=== PATIENT | female | born 1960 | race Caucasian/White ===

== ENCOUNTER → 2016-06-16 | Outpatient (CLI) | payer OTHER ==
--- NOTE | 2016-06-16 16:35 | CT ---
EXAMINATION TYPE: CT iac wo con DATE OF EXAM: 06/16/2016 4:27 PM COMPARISON: 11/11/2013 HISTORY: Cholesteatoma of tympanum, right ear. CT DLP: 142.70mGycm Automated exposure control for dose reduction was used. FINDINGS: The external auditory canals are patent bilaterally. Again noted are changes of the partial right-sided mastoidectomy with internal lobular soft tissue noted likely postoperative in nature. Co mplete opacification of the remnant mastoid air cells and right petrous apex. Again noted is soft tis akash surrounding the right ossicular chain extending into the epitympanum. The scutum has been resecte d on the right. Underlying cholesteatoma is not excluded. The left-sided mastoid air cells are well-aerated. Left-sided tympanic membrane and ossicular chains are unremarkable. No additional soft tissue identified. Left-sided scutum is intact. Again noted is e vidence of occipital bone thinning on the left. IMPRESSION: 1. Stable left postoperative change of partial right-sided mastoidectomy with persistent soft tissue surrounding the right ossicular chain underlying cholesteatoma is not excluded.
== END | disposition home or self-care (01) ==
LOC: RADCTMAIN 16:02
PROVIDERS: ATTEND Otolaryngology Otology & Neurotology
DX: H71.11 Cholesteatoma of tympanum, right ear (principal); Z98.890 Other specified postprocedural states
CPT/HCPCS: 70480

== ENCOUNTER → 2016-06-26 | Outpatient (CLI) | payer OTHER ==
--- NOTE | 2016-06-27 10:58 | BD ---
EXAMINATION TYPE: MG DEXA axial skeleton. DATE OF EXAM: 06/26/2016 3:06 PM COMPARISON: NONE CLINICAL HISTORY: M89.9 Disorder of Bone Height: 65 Weight: 133.5 FRAX RISK QUESTIONS: Alcohol (3 or more units per day): no Family History (Parent hip fracture): no Glucocorticoids (More than 3mos): no (Ex: prednisone, prednisolone, methylprednisolone, dexamethasone, and hydrocortisone). History of Fracture in Adulthood: no Secondary Osteoporosis: 1. Type 1 Diabetes: no 2. Hyperthyroidism: no 3. Menopause before 45: no 4. Malnutrition: no 5. Chronic liver disease: no Rheumatoid Arthritis: yes Current Tobacco Use: no RISK FACTORS HISTORY OF: Hip Fracture (Right/Left): no spine Fracture: no History of Wrist Fracture: no Surgery to Spine/Hip(right/left)/Wrist (right/left): no Family History of Osteoporosis: yes mother Active: yes Diet low in dairy products/other sources of calcium: yes Postmenopausal woman: age48 Lost more than 2 inches in height since high school: no Frequent falls: no Adrenal Insufficiency: no MEDICATIONS: Thyroid Medications: tirosent Additional History: EXAM MEASUREMENTS: Bone mineral densitometry was performed using the [employer] System. Bone mineral density as measured about the Lumbar spine is: ----- L1-L4(G/cm2): 0.886 T Score Values are as follows: ----- L2: -2.5 ----- L3: -2.3 ----- L4: -3.0 ----- L1-L4: -2.4 Bone mineral density has: decreased -17.2 % since study of: 06.13.2010 Bone mineral density about the R hip (g/cm2): 0.847 Bone mineral density about the L hip (g/cm2): 0.856 T Score values are as follows: -----R Neck: -1.4 -----L Neck: -1.3 -----R Intertrochanter: -1.5 -----L Intertrochanter: -2.1 Bone mineral density has: % since study of: 06.13.2010 IMPRESSION: Osteopenia and as such there is increased fracture risk. NOTE: T-SCORE=SD OF THE YOUNG ADULT MEAN.
--- NOTE | 2016-06-30 09:20 | MM ---
Reason for exam: screening (asymptomatic). Last mammogram was performed 6 years ago. History: Patient is postmenopausal. Benign cyst aspiration of the left breast. Physical Findings: A clinical breast exam by your physician is recommended on an annual basis and results should be correlated with mammographic findings. MG 3D Screening Mammo W/Cad Bilateral CC and MLO view(s) were taken. Prior study comparison: June 13, 2010, bilateral digital screening mammo w/CAD. August 30, 2008, bilateral digital screening mammogram. The breast tissue is heterogeneously dense. This may lower the sensitivity of mammography. Finding: There is a typically benign high density, round, partially visualized mass in the inner quadrant, posterior position of the left breast seen on CC view, 7 cm from the nipple. New finding since June 13, 2010. ASSESSMENT: Incomplete: need additional imaging evaluation, BI-RAD 0 RECOMMENDATION: Ultrasound of the left breast. [facility] will attempt to contact patient to return for ultrasound.
== END | disposition home or self-care (01) ==
LOC: RADMAMWWP 14:28
PROVIDERS: ATTEND Obstetrics & Gynecology
DX: Z12.31 Encounter for screening mammogram for malignant neoplasm of breast (principal); M85.80 Other specified disorders of bone density and structure, unspecified site
CPT/HCPCS: 77080; 77063; G0202

== ENCOUNTER → 2016-07-03 | Outpatient (CLI) | payer OTHER ==
--- NOTE | 2016-07-03 12:08 | USB ---
Reason for exam: additional evaluation requested from abnormal screening. History: Patient is postmenopausal. Benign cyst aspiration of the left breast. Physical Findings: Nurse did not find any significant physical abnormalities on exam. US Breast Workup Limited LT Left breast ultrasound demonstrates a 1.1 x 0.65 x 1.2cm solid lesion, sebaceous cyst at 9:30. These results were verbally communicated with the patient and result sheet given to the patient on 07/03/16. ASSESSMENT: Probably benign, BI-RAD 3 RECOMMENDATION: Return to routine screening mammogram schedule for both breasts. Manage patient on a clinical basis.
== END | disposition home or self-care (01) ==
LOC: RADUSWWP 10:16
PROVIDERS: ATTEND Obstetrics & Gynecology
DX: R92.8 Other abnormal and inconclusive findings on diagnostic imaging of breast (principal)

== ENCOUNTER 2017-06-14 09:22 | Emergency (ER) | payer OTHER ==
[2017-06-14 09:29] VITALS: PULSE 77; RESP 16
--- NOTE | 2017-06-14 10:41 | ED ---
General Adult HPI - General Chief complaint: ENT Stated complaint: Jaw pain Time Seen by Provider: 06/14/17 09:35 Source: patient, RN notes reviewed Mode of arrival: ambulatory Limitations: no limitations - History of Present Illness Initial comments: Patient's a 56-year-old female who presents emergency room today with a chief complaint of left-sided jaw pain. She states it started last night. She states that she was at a friend's house eating dinner. She states that it is worse with movements if she opens her closer bites down. Patient does admit to a history of right ear surgeries. Total of 4 over the last 4 years. States she had an implant removed in February 2017 had an infection afterwards. States that she saw Dr. Judge. States that over the last week she's been treated for a sinus infection. Patient states that she wasn't sure if this was related. Patient doesn't that she felt a little lightheaded and dizzy at times if she puts her head back. She denies any other complaints or any other symptoms. Denies any cardiac history. Patient denies any recent fever, chills, shortness of breath, chest pain, back pain, abdominal pain, nausea or vomiting, numbness or tingling, dysuria or hematuria, constipation or diarrhea, headaches or visual changes, or any other complaints. - Related Data Previous Rx's Medication Instructions Recorded Meclizine [Antivert] 25 mg PO DAILY 10 Days tab 06/14/17 Allergies Allergy/AdvReac Type Severity Reaction Status Date / Time acetaminophen [From [place]] AdvReac Nausea & Verified 06/14/17 09:29 Vomiting hydrocodone [From [place]] AdvReac Nausea & Verified 06/14/17 09:29 Vomiting Review of Systems ROS Statement: Those systems with pertinent positive or pertinent negative responses have been documented in the HPI. ROS Other: All systems not noted in ROS Statement are negative. Past Medical History Past Medical History: Thyroid Disorder History of Any Multi-Drug Resistant Organisms: Other MDRO Date of last positivie culture/infection: 2018 MDRO Source:: bacertial infection right ear Past Surgical History: Ear Surgery Additional Past Surgical History / Comment(s): right ear 4 surgeries, double foot Past Psychological History: No Psychological Hx Reported Smoking Status: Never smoker Past Alcohol Use History: Occasional Past Drug Use History: None Reported General Exam - General Exam Comments Initial Comments: General: The patient is awake and alert, in no distress, and does not appear acutely ill. Eye: Pupils are equal, round and reactive to light, extra-ocular movements are intact. No nystagmus. There is normal conjunctiva bilaterally. No signs of icterus. Ears, nose, mouth and throat: There are moist mucous membranes and no oral lesions. Does have tenderness when she opens and closes and clenches her teeth. Tender over the TMJ joint. Neck: The neck is supple, there is no tenderness or JVD. Cardiovascular: There is a regular rate and rhythm. No murmur, rub or gallop is appreciated. Respiratory: Lungs are clear to auscultation, respirations are non-labored, breath sounds are equal. No wheezes, stridor, rales, or rhonchi. Musculoskeletal: Normal ROM, no tenderness. Strength 5/5. Sensation intact. Pulses equal bilaterally 2+. Neurological: A&O x 3. CN II-XII intact, There are no obvious motor or sensory deficits. Coordination appears grossly intact. Speech is normal. Skin: Skin is warm and dry and no rashes or lesions are noted. Psychiatric: Cooperative, appropriate mood & affect, normal judgment. Limitations: no limitations Course Vital Signs 06/14/17 09:23 Temperature 97.7 F Pulse Rate 77 Respiratory 16 Rate Blood Pressure 123/67 O2 Sat by Pulse 100 Oximetry EKG Findings - EKG Comments: EKG Findings:: EKG performed at 0959: A 12-lead EKG was performed and interpreted by me as showing the following: Rate is 61, and rhythm is normal sinus. There are normal QRS complexes and normal R-wave progression. ST segments have no elevation or depression, and NV segments appear normal. Medical Decision Making - Medical Decision Making Patient reexamined at this time shows no signs of distress. Her pain is reproduced on palpation over the TMJ joint. It is worse with certain movements. EKG was performed and shows normal sinus rhythm. Case was discussed with the attending physician Dr. Ferris. At this time patient's pain is reproducible. She currently being treated for a sinus infection. Patient will be given meclizine for symptoms advised follow-up the family doctor tomorrow. Advised return here to the emergency room for any symptoms increase or worsen or for any other concerns. Patient states understanding and is in agreement with the plan. Disposition Clinical Impression: TMJ arthralgia Disposition: HOME SELF-CARE Condition: Good Instructions: Temporomandibular Disorder (ED) Additional Instructions: Please follow-up the family doctor tomorrow as discussed. Please use medication as prescribed. Please return to emergency room if any symptoms increase or worsen or for any other concerns. Prescriptions: Meclizine [Antivert] 25 mg PO DAILY 10 Days tab Referrals: Lino Wood DO [Primary Care Provider] - 1-2 days Time of Disposition: 10:40
[2017-06-14 10:47] VITALS: BP 120/68; TEMP 98
== END 2017-06-14 10:46 | disposition home or self-care (01) ==
LOC: EC 09:22
DX: M26.622 Arthralgia of left temporomandibular joint (principal); Z88.5 Allergy status to narcotic agent; Z88.6 Allergy status to analgesic agent
CPT/HCPCS: 93005; 99283

== ENCOUNTER → 2018-05-27 | Outpatient (CLI) | payer MEDICAID ==
--- NOTE | 2018-05-27 12:24 | XR ---
EXAMINATION TYPE: XR chest 2V DATE OF EXAM: 05/27/2018 COMPARISON: 04/08/2017 TECHNIQUE: PA and lateral views submitted. HISTORY: Shortness of breath FINDINGS: The lungs are clear and there is no pneumothorax, pleural effusion, or focal pneumonia. Hyperinflat ion suggests COPD. Biapical pleural thickening. 5 mm nodular density lateral margin right lower lobe is stable. Degenerative change of the spine. IMPRESSION: 1. Correlate for COPD..
== END | disposition home or self-care (01) ==
LOC: RADXRMAIN 11:41
PROVIDERS: ATTEND Family Medicine
DX: J45.21 Mild intermittent asthma with (acute) exacerbation (principal)
CPT/HCPCS: 71046

== ENCOUNTER 2018-07-21 10:23 | Observation (INO) | payer MEDICAID ==
[2018-07-21] MEDS ORDERED: NITROGLYCERIN SL TABS 0.4 MG TAB SUBLINGUAL STA ×3 (10:49)
[2018-07-21] MEDS ORDERED: ASPIRIN 81 MG PO STA (10:49)
--- NOTE | 2018-07-21 10:52 | ED ---
General Adult HPI - General Chief complaint: Chest Pain Stated complaint: Chest Pain Time Seen by Provider: 07/21/18 10:39 Source: patient, RN notes reviewed Limitations: no limitations - History of Present Illness Initial comments: Patient is a pleasant 67-year-old female presenting to the emergency Department with complaints of chest discomfort. Symptoms have been present for several weeks. did have a trip to [place] recently however symptoms started for that. Patient has also been having cough for the past couple of weeks. Patient feels her chest is congested. Patient does feel somewhat short of breath. No nausea or diaphoresis. Symptoms are not necessarily worse with exertion. Discomfort feels a pressure and does radiate towards the back. - Related Data Home Medications Medication Instructions Recorded Confirmed Ibuprofen [Motrin Ib] 600 mg PO Q12H 07/21/18 07/21/18 Levothyroxine Sodium [Synthroid] 50 mcg PO DAILY 07/21/18 07/21/18 Allergies Allergy/AdvReac Type Severity Reaction Status Date / Time acetaminophen [From [place]] AdvReac Nausea & Verified 07/21/18 11:41 Vomiting hydrocodone [From [place]] AdvReac Nausea & Verified 07/21/18 11:41 Vomiting Review of Systems ROS Statement: Those systems with pertinent positive or pertinent negative responses have been documented in the HPI. ROS Other: All systems not noted in ROS Statement are negative. Constitutional: Denies: fever Eyes: Denies: eye pain ENT: Denies: throat pain Respiratory: Reports: cough, dyspnea Cardiovascular: Reports: chest pain Endocrine: Denies: fatigue Gastrointestinal: Denies: abdominal pain, nausea Genitourinary: Denies: dysuria Musculoskeletal: Reports: as per HPI Skin: Denies: rash Neurological: Denies: weakness Past Medical History Past Medical History: Thyroid Disorder History of Any Multi-Drug Resistant Organisms: Other MDRO Date of last positivie culture/infection: 2017 MDRO Source:: bacertial infection right ear Past Surgical History: Ear Surgery Additional Past Surgical History / Comment(s): right ear 4 surgeries, double foot Past Psychological History: No Psychological Hx Reported Smoking Status: Never smoker Past Alcohol Use History: Occasional Past Drug Use History: None Reported General Exam Limitations: no limitations General appearance: alert, in no apparent distress Head exam: Present: normocephalic Eye exam: Present: normal appearance, PERRL ENT exam: Present: normal oropharynx Neck exam: Present: normal inspection Respiratory exam: Present: normal lung sounds bilaterally. Absent: chest wall tenderness Cardiovascular Exam: Present: regular rate, normal rhythm Expanded Peripheral pulses: 2+: Radial (R), Radial (L), Dorsalis Pedis (R), Dorsalis Pedis (L) GI/Abdominal exam: Present: soft. Absent: tenderness Extremities exam: Present: normal inspection. Absent: pedal edema, calf tenderness Back exam: Present: normal inspection. Absent: tenderness Neurological exam: Present: alert Psychiatric exam: Present: normal affect, normal mood Skin exam: Present: normal color Course Vital Signs 07/21/18 07/21/18 07/21/18 10:33 11:33 11:40 Temperature 97.7 F Pulse Rate 87 77 73 Respiratory 16 16 16 Rate Blood Pressure 132/75 120/74 111/70 O2 Sat by Pulse 100 100 99 Oximetry EKG Findings - EKG Comments: EKG Findings:: Normal sinus rhythm at 60. AK 132. QRS 82. QT 404. QTC 404. Normal axis. Normal QRS. No acute ST change. Medical Decision Making - Medical Decision Making Patient reevaluated and updated on results and plan. Patient specifically is updated on nodules and need for follow-up with this in the future. Case was discussed in detail with Dr. Cervantes, covering for Dr. Wood, who will admit. - Lab Data Result diagrams: 07/21/18 11:34 07/21/18 11:34 Lab Results 07/21/18 07/21/18 07/21/18 Range/Units 11:34 11:34 11:34 WBC 4.9 (3.8-10.6) k/uL RBC 4.30 (3.80-5.40) m/uL Hgb 13.1 (11.4-16.0) gm/dL Hct 39.4 (34.0-46.0) % MCV 91.7 (80.0-100.0) fL MCH 30.4 (25.0-35.0) pg MCHC 33.2 (31.0-37.0) g/dL RDW 12.6 (11.5-15.5) % Plt Count 255 (150-450) k/uL Neutrophils % 54 % Lymphocytes % 29 % Monocytes % 6 % Eosinophils % 6 % Basophils % 1 % Neutrophils # 2.7 (1.3-7.7) k/uL Lymphocytes # 1.5 (1.0-4.8) k/uL Monocytes # 0.3 (0-1.0) k/uL Eosinophils # 0.3 (0-0.7) k/uL Basophils # 0.1 (0-0.2) k/uL PT 10.1 (9.0-12.0) sec INR 0.9 (<1.2) APTT 90.0 H (22.0-30.0) sec D-Dimer 0.80 H (<0.60) mg/L FEU Sodium 138 (137-145) mmol/L Potassium 4.1 (3.5-5.1) mmol/L Chloride 106 (98-107) mmol/L Carbon Dioxide 26 (22-30) mmol/L Anion Gap 6 mmol/L BUN 14 (7-17) mg/dL Creatinine 0.56 (0.52-1.04) mg/dL Est GFR (CKD-EPI)AfAm >90 (>60 ml/min/1.73 sqM) Est GFR (CKD-EPI)NonAf >90 (>60 ml/min/1.73 sqM) Glucose 86 (74-99) mg/dL Calcium 9.8 (8.4-10.2) mg/dL Magnesium 2.1 (1.6-2.3) mg/dL Total Bilirubin 0.6 (0.2-1.3) mg/dL AST 24 (14-36) U/L ALT 28 (9-52) U/L Alkaline Phosphatase 67 (38-126) U/L Creatine Kinase 74 (30-135) U/L Troponin I (0.000-0.034) ng/mL NT-Pro-B Natriuret Pep pg/mL Total Protein 7.2 (6.3-8.2) g/dL Albumin 4.1 (3.5-5.0) g/dL 07/21/18 07/21/18 Range/Units 11:34 11:34 WBC (3.8-10.6) k/uL RBC (3.80-5.40) m/uL Hgb (11.4-16.0) gm/dL Hct (34.0-46.0) % MCV (80.0-100.0) fL MCH (25.0-35.0) pg MCHC (31.0-37.0) g/dL RDW (11.5-15.5) % Plt Count (150-450) k/uL Neutrophils % % Lymphocytes % % Monocytes % % Eosinophils % % Basophils % % Neutrophils # (1.3-7.7) k/uL Lymphocytes # (1.0-4.8) k/uL Monocytes # (0-1.0) k/uL Eosinophils # (0-0.7) k/uL Basophils # (0-0.2) k/uL PT (9.0-12.0) sec INR (<1.2) APTT (22.0-30.0) sec D-Dimer (<0.60) mg/L FEU Sodium (137-145) mmol/L Potassium (3.5-5.1) mmol/L Chloride (98-107) mmol/L Carbon Dioxide (22-30) mmol/L Anion Gap mmol/L BUN (7-17) mg/dL Creatinine (0.52-1.04) mg/dL Est GFR (CKD-EPI)AfAm (>60 ml/min/1.73 sqM) Est GFR (CKD-EPI)NonAf (>60 ml/min/1.73 sqM) Glucose (74-99) mg/dL Calcium (8.4-10.2) mg/dL Magnesium (1.6-2.3) mg/dL Total Bilirubin (0.2-1.3) mg/dL AST (14-36) U/L ALT (9-52) U/L Alkaline Phosphatase (38-126) U/L Creatine Kinase (30-135) U/L Troponin I <0.012 (0.000-0.034) ng/mL NT-Pro-B Natriuret Pep 77 pg/mL Total Protein (6.3-8.2) g/dL Albumin (3.5-5.0) g/dL - Radiology Data Radiology results: report reviewed (Computed tomography scan negative for pulmonary embolism. There are some nodules.), image reviewed (Chest x-ray shows no acute process) Disposition Clinical Impression: Chest pain Disposition: ADMITTED IP TO THIS HOSP Is patient prescribed a controlled substance at d/c from ED?: No Referrals: Lino Wood DO [Primary Care Provider] - 1-2 days Decision Time: 13:32
--- NOTE | 2018-07-21 11:32 | XR ---
EXAMINATION TYPE: XR chest 2V DATE OF EXAM: 07/21/2018 COMPARISON: . History of bronchitis. 05/27/2018 HISTORY: Chest heaviness in chest pain TECHNIQUE: Frontal and lateral views of the chest are obtained. FINDINGS: There is no focal air space opacity, pleural effusion, or pneumothorax seen. Pulmonary hyp erinflation and flattening of the diaphragms on the lateral view suggests underlying COPD. Biapical l ucency is also seen suggesting COPD. The cardiac silhouette size is within normal limits. The osseo us structures are intact. IMPRESSION: No acute cardiopulmonary process. Radiographic evidence of COPD.
[2018-07-21 11:59] LABS: Basophils # (A) 0.1 k/uL (0-0.2); Basophils % (A) 1 %; Eosinophils # (A) 0.3 k/uL (0-0.7); Eosinophils % (A) 6 %; HCT 39.4 % (34.0-46.0); HGB 13.1 gm/dL (11.4-16.0); Lymphocytes # (A) 1.5 k/uL (1.0-4.8); Lymphocytes % (A) 29 %; MCH 30.4 pg (25.0-35.0); MCHC 33.2 g/dL (31.0-37.0); MCV 91.7 fL (80.0-100.0); Mean Platelet Volume 7.8; Monocytes # (A) 0.3 k/uL (0-1.0); Monocytes % (A) 6 %; Neutrophils # (A) 2.7 k/uL (1.3-7.7); Neutrophils % (A) 54 %; Platelet Count 255 k/uL (150-450); RDW 12.6 % (11.5-15.5); WBC 4.9 k/uL (3.8-10.6)
[2018-07-21 12:09] LABS: ALT 28 U/L (9-52); AST 24 U/L (14-36); Albumin 4.1 g/dL (3.5-5.0); Alkaline Phosphatase 67 U/L (38-126); Anion Gap 6 mmol/L; Blood Urea Nitrogen 14 mg/dL (7-17); Calcium 9.8 mg/dL (8.4-10.2); Carbon Dioxide 26 mmol/L (22-30); Chloride 106 mmol/L (98-107); Creatine Kinase 74 U/L (30-135); Glucose 86 mg/dL (74-99); Magnesium 2.1 mg/dL (1.6-2.3); Potassium 4.1 mmol/L (3.5-5.1); Sodium 138 mmol/L (137-145); Total Bilirubin 0.6 mg/dL (0.2-1.3); Total Protein 7.2 g/dL (6.3-8.2)
[2018-07-21 12:16] LABS: INR 0.9 (<1.2); Prothrombin Time 10.1 sec (9.0-12.0)
[2018-07-21 12:32] LABS: D-Dimer 0.8 mg/L FEU (<0.60)
--- NOTE | 2018-07-21 13:09 | CT ---
EXAMINATION TYPE: CT angio chest DATE OF EXAM: 07/21/2018 COMPARISON: 07/21/2018 HISTORY: 57 year-old female shortness of breath, Difficulty breathing TECHNIQUE: Contiguous axial scanning of the chest performed with IV Contrast, patient injected with 1 00 mL of Isovue 370. Coronal/sagittal MIP reconstructions performed. CT DLP: 197.9 mGycm Automated exposure control for dose reduction was used. FINDINGS: Heart normal size without pericardial effusion. Aorta normal caliber with conventional arch vessel branching anatomy. Scattered nonenlarged mediastinal lymph nodes are demonstrated. Satisfactory opacification of the pulmonary to systemic without evidence for pulmonary embolus. There is no flattening of the interventricular septum or reflux of contrast into the hepatic veins. Mild diffuse bronchial wall thickening. Mild dependent atelectasis. Scattered mild emphysematous kaur ge. 6 mm subpleural pulmonary nodule peripheral right base, axial image 100. 4 mm posterior left basilar pulmonary nodule axial image 97. 4 mm subpleural pulmonary nodule along the superior aspect of the left major fissure, axial image 40. Mild biapical pleural-parenchymal scarring. No consolidation or pleural effusion. Visualized upper abdomen shows a hilar splenule. Bones: No osseous destructive process. Mild degenerative disc disease midthoracic spine. IMPRESSION: 1. COPD WITH MILD EMPHYSEMA. 2. NO EVIDENCE FOR PULMONARY EMBOLUS. 3. A FEW SCATTERED PULMONARY NODULES MEASURING UP TO 6 MM. A 6 MONTH FOLLOW-UP CT CAN REASSESS.
[2018-07-21] MEDS ORDERED: NITROGLYCERIN SL TABS 0.4 MG TAB SUBLINGUAL PRN (13:33)
[2018-07-21 15:15] VITALS: BMI 21.6
[2018-07-21] MEDS: NITROGLYCERIN OINT 1 INCH/GM PACKET TOPICAL SCH ×2 (18:50→23:43)
--- NOTE | 2018-07-21 19:11 | HP ---
HISTORY AND PHYSICAL DATE OF ADMISSION AND SERVICE: 07/21/2018 PRESENTING COMPLAINT: Chest pain. HISTORY OF PRESENTING COMPLAINT: This is a pleasant 57-year-old patient of Dr. Lino Wood. Chronic stable medical conditions include hypothyroid, rheumatoid arthritis, hiatal hernia. The patient does follow up with Dr. 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 The patient's arthritis in the hands has been bothering her. For 6 weeks she was being treated for bronchitis and has had 2 courses of steroids and antibiotics. Still has a slightly congested chest, occasionally gets some fluttering in the chest. Yesterday she noticed some heaviness in the left upper part of the chest going to the left shoulder. There was no dizziness, no lightheadedness, no obvious shortness of breath, not related to activity. The patient's appetite is fair. There was no fever or chills. Because of the combination of symptoms, she decided to come in to get a cardiac cause ruled out. Patient has good exercise tolerance and otherwise is very active. No prior cardiac history. REVIEW OF SYSTEMS: CONSTITUTIONAL: As above. HEENT: None. RESPIRATORY: As above. CARDIOVASCULAR: As above. GASTROINTESTINAL: None. GENITOURINARY: None. MUSCULOSKELETAL: Pain in the joints, especially in the hands. DERMATOLOGICAL: None. HEMATOLOGICAL: None. LYMPHATICS: None. PSYCHIATRY: None. NEUROLOGICAL: None. PAST MEDICAL HISTORY: 1. Hypothyroid. 2. Rheumatoid arthritis. 3. Hiatal hernia. PAST SURGICAL HISTORY: 1. Ear surgery; right ear 4 surgeries. 2. Bilateral foot bunionectomy. SOCIAL HISTORY: . 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 Does not smoke or drink alcohol. FAMILY HISTORY: Reviewed; noncontributory to presentation. HOME MEDICATIONS: 1. Synthroid 50 mcg a day. 2. Motrin 600 mg q.12. ALLERGIES: NOR[place] causing nausea and vomiting. PHYSICAL EXAMINATION: Temperature 97.7, pulse 71, respirations 16, blood pressure 135/86, pulse ox 100% on room air. GENERAL APPEARANCE: Average build. Sitting up, comfortable. EYES: Pupils equal. Conjunctivae normal. HEENT: External appearance of nose and ears normal. Oral cavity normal. NECK: JVD not raised. Mass not palpable. RESPIRATORY: Effort normal. LUNGS: Fair air entry. CARDIOVASCULAR: First and second sounds normal. No edema. ABDOMEN: Soft, non-tender. Liver and spleen not palpable. LYMPHATIC: No lymph node palpable in neck or axillae. PSYCHIATRY: Alert and oriented x3. Mood and affect normal. NEUROLOGICAL: Pupils equal. Cranial nerves grossly intact. Power and sensation grossly intact. MUSCULOSKELETAL: Swelling of the joints, especially of the hands. INVESTIGATIONS: White count 4.9, hemoglobin 13.1. D-dimer 0.8, potassium 4.1. BUN and creatinine are normal. Troponin x2 was negative. EKG tracing, personally reviewed by me, shows normal sinus rhythm. Chest CTA shows some 4-6 mm nodules. Chest x-ray film, personally reviewed by me, shows some hyperinflation. ASSESSMENT: 1. Left-sided chest pain with other atypical features, likely non-cardiac in nature, but we will get a cardiology opinion to rule out the same. 2. Hypothyroid. Rule out over-replacement. 3. Chronic rheumatoid arthritis. 4. Hiatal hernia. 5. Episodes of fluttering in the chest; could be occasional PVCs. 6. Acute viral syndrome. Sometimes these symptoms can last for a good 4-6 weeks. PLAN: Care was discussed with the patient. Patient is on aspirin and Nitro-Bid. Cardiology is consulted. Serial cardiac enzymes are in place. Will check patient's thyroid function in the morning. MMODL / IJN: [id number] /
[2018-07-22] MEDS: NITROGLYCERIN OINT 1 INCH/GM PACKET TOPICAL SCH ×2 (05:48→11:39)
[2018-07-22] MEDS ORDERED: IBUPROFEN 600 MG TAB PO STA (06:04)
[2018-07-22] MEDS ORDERED: IBUPROFEN 200 MG TAB PO SCH (06:15)
[2018-07-22] MEDS ORDERED: LEVOTHYROXINE 50 MCG TAB PO SCH (06:30)
[2018-07-22 07:45] VITALS: RESP 16
[2018-07-22] MEDS ORDERED: ASPIRIN 325 MG TAB PO SCH (09:00)
[2018-07-22 09:59] LABS: T4, Free (Free Thyroxine) 1.45 ng/dL (0.78-2.19)
--- NOTE | 2018-07-22 10:50 | P.CRDCN ---
History of Present Illness History of present illness: This is a pleasant 57-year-old female past medical history significant for rheumatoid arthritis and former nicotine dependence. She denies history of hypertension, dyslipidemia, diabetes mellitus or coronary artery disease. 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 We've asked to see her in consultation secondary to chest discomfort. She states this all started approximately one month ago after losing her sister. Her first episode occurred while she was in [place] walking around she noticed a numb heavy sensation in the left arm from the shoulder down to the hand. His persisted for approximately 20-30 minutes and subsided on its own. At that time there is no associated chest discomfort or any other associated symptoms. 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 There is no radiation into the arm, into the back, neck or jaw. She denies associated shortness of breath, dizziness, nausea, vomiting, palpitations or d iaphoresis. The pain in her chest seemed to be worse with deep inspiration. She continues to have ongoing mild heaviness in the chest. Intensity has subsided since admission. She states for approximately 6 weeks she has been following closely with her primary care physician and has been told she has bronchitis. She continues to have a mild dry cough. EKG reveals sinus mechanism with no acute ST or T wave abnormalities noted. Chest x-ray is negative for an acute cardiopulmonary process. CTA chest is negative for pulmonary embolism with evidence of emphysema and 3 scattered luminary nodules measuring up to 6 mm. 6 month follow-up CT is recommended. Laboratory data reviewed, WBC 4.9, hemoglobin 13.1, platelets 255, d-dimer 0.8, sodium 138, potassium 4.1, creatinine 0.56, magnesium 2.1, cardiac enzymes negative 3, NT proBNP 77, LDL 96, HDL 67, TSH 5.68 and free T4 1.45. She takes no daily cardiac medications. At the time of my exam: CONSTITUTIONAL: Denies fever. Denies chills. EYES: Denies blurred vision. Denies vision changes. Denies eye pain. EARS, NOSE, MOUTH & THROAT: Denies headache. Denies sore throat. Denies ear pain. CARDIOVASCULAR: Denies chest pain. Denies shortness of breath. Denies orthopnea. Denies PND. Denies palpitations. RESPIRATORY: Denies cough. GASTROINTESTINAL: Denies abdominal pain. Denies diarrhea. Denies constipation. Denies nausea. Denies vomiting. MUSCULOSKELETAL: Denies myalgias. INTEGUMENTARY: Denies pruitis. Denies rash. NEUROLOGIC: Denies numbness. Denies tingling. Denies weakness. PSYCHIATRIC: Denies anxiety. Denies depression. ENDOCRINE: Denies fatigue. Denies weight change. Denies polydipsia. Denies polyurina. GENITOURINARY: Denies burning, hematuria or urgency with micturation. HEMATOLOGIC: Denies history of anemia. Denies bleeding. Blood pressure 126/72 heart rate 66 afebrile maintaining oxygen saturation on room air GENERAL: This is a 57-year-old female in no apparent distress at the time of my examination. HEENT: Head is atraumatic, normocephalic. Pupils are equal, round. Sclerae anicteric. Conjunctivae are clear. Mucous membranes of the mouth are moist. Neck is supple. There is no jugular venous distention. No carotid bruit is heard. LUNGS: Clear to auscultation no wheezes, rales or rhonchi. No chest wall tenderness is noted on palpation or with deep breathing. HEART: Regular rate and rhythm without murmurs, rubs or gallops. S1 and S2 heard. ABDOMEN: Soft, nontender. Bowel sounds are heard. No organomegaly noted. EXTREMITIES: No evidence of peripheral edema and no calf tenderness noted. VASCULAR: Radial and dorsalis pedis pulses palpated, no evidence of clubbing. NEUROLOGIC: Patient is awake, alert and oriented x3. ASSESSMENT Chest pain, atypical for angina with some pleuritic factors. An acute coronary event has been ruled out. History of rheumatoid arthritis Pulmonary nodules noted on CT Former nicotine dependence PLAN An acute coronary event has been ruled out with no EKG evidence of ischemia and negative cardiac enzymes. Obtain 2-D echocardiogram and Doppler study to assess cardiac structure and function. Perform stress echocardiogram to assess for stress-induced ischemia. If stress test is normal she is stable from a cardiac perspective. Symptoms may be related to postnasal drip causing cough and pleuritic chest discomfort. Thank you kindly for this consultation. Nurse Practitioner note has been reviewed, I agree with a documented findings and plan of care. Patient was seen and examined. Past Medical History Past Medical History: Thyroid Disorder Additional Past Medical History / Comment(s): RA, hiatal hernia History of Any Multi-Drug Resistant Organisms: None Reported Date of last positivie culture/infection: 2018 MDRO Source:: bacertial infection right ear Past Surgical History: Ear Surgery Additional Past Surgical History / Comment(s): right ear 4 surgeries, bilat foot bunionectomy Past Anesthesia/Blood Transfusion Reactions: No Reported Reaction Additional Past Anesthesia/Blood Transfusion Reaction / Comment(s): pt statess she sometimes has difficulty waking up. Past Psychological History: No Psychological Hx Reported Smoking Status: Former smoker Past Alcohol Use History: Occasional Past Drug Use History: None Reported Medications and Allergies Home Medications Medication Instructions Recorded Confirmed Type Ibuprofen [Motrin Ib] 600 mg PO Q12H 07/21/18 07/21/18 History Levothyroxine Sodium [Synthroid] 50 mcg PO DAILY 07/21/18 07/21/18 History Allergies Allergy/AdvReac Type Severity Reaction Status Date / Time acetaminophen [From [facility]] AdvReac Nausea & Verified 07/21/18 11:41 Vomiting hydrocodone [From [facility]] AdvReac Nausea & Verified 07/21/18 11:41 Vomiting Physical Exam Vitals: Vital Signs Temp Pulse Pulse Resp BP BP Pulse Ox 07/22/18 07:17 96 07/22/18 07:10 97.8 F 66 16 126/72 98 07/22/18 03:50 98.2 F 63 14 122/74 99 07/22/18 03:25 65 15 07/22/18 00:00 15 07/21/18 23:20 97.7 F 65 15 110/65 96 07/21/18 20:00 16 07/21/18 19:00 98.0 F 81 16 126/77 99 07/21/18 15:58 71 16 07/21/18 14:32 97.7 F 71 16 135/86 100 07/21/18 14:19 75 18 136/91 97 07/21/18 11:40 73 16 111/70 99 07/21/18 11:33 77 16 120/74 100 07/21/18 10:33 97.7 F 87 16 132/75 100 Intake and Output 07/21/18 07/22/18 07/22/18 22:59 06:59 14:59 Intake Total 420 Balance 420 Intake: Oral 420 Other: Voiding Method Toilet Toilet Toilet # Voids 2 2 Results 07/21/18 11:34 07/21/18 11:34 Cardiac Enzymes 07/21/18 07/21/18 07/21/18 Range/Units 11:34 11:34 17:38 AST 24 (14-36) U/L Troponin I <0.012 <0.012 (0.000-0.034) ng/mL 07/21/18 Range/Units 23:45 AST (14-36) U/L Troponin I <0.012 (0.000-0.034) ng/mL Coagulation 07/21/18 Range/Units 11:34 PT 10.1 (9.0-12.0) sec APTT 90.0 H (22.0-30.0) sec Lipids 07/21/18 Range/Units 11:34 Triglycerides 51 (<150) mg/dL Cholesterol 173 (<200) mg/dL HDL Cholesterol 67 H (40-60) mg/dL CBC 07/21/18 Range/Units 11:34 WBC 4.9 (3.8-10.6) k/uL RBC 4.30 (3.80-5.40) m/uL Hgb 13.1 (11.4-16.0) gm/dL Hct 39.4 (34.0-46.0) % Plt Count 255 (150-450) k/uL Comprehensive Metabolic Panel 07/21/18 Range/Units 11:34 Sodium 138 (137-145) mmol/L Potassium 4.1 (3.5-5.1) mmol/L Chloride 106 (98-107) mmol/L Carbon Dioxide 26 (22-30) mmol/L BUN 14 (7-17) mg/dL Creatinine 0.56 (0.52-1.04) mg/dL Glucose 86 (74-99) mg/dL Calcium 9.8 (8.4-10.2) mg/dL AST 24 (14-36) U/L ALT 28 (9-52) U/L Alkaline Phosphatase 67 (38-126) U/L Total Protein 7.2 (6.3-8.2) g/dL Albumin 4.1 (3.5-5.0) g/dL Current Medications Generic Name Dose Route Start Last Admin Trade Name Freq PRN Reason Stop Dose Admin Aspirin 325 mg 07/22/18 09:00 Aspirin PO DAILY [facility] Ibuprofen 600 mg 07/22/18 06:15 Advil PO Q12H [facility] Levothyroxine Sodium 50 mcg 07/22/18 06:30 07/22/18 05:46 Synthroid PO 50 mcg DAILY@0630 [facility] Administration Nitroglycerin 1 inch 07/21/18 18:00 07/22/18 05:48 Nitro-Bid Oint TOPICAL Not Given Q6HR [facility] Nitroglycerin 0.4 mg 07/21/18 13:33 Nitrostat SUBLINGUAL Q5M PRN Chest Pain Sodium Chloride 10 ml 07/21/18 21:00 07/21/18 22:13 Saline Flush IV 10 ml BID [facility] Administration Intake and Output 07/21/18 07/22/18 07/22/18 22:59 06:59 14:59 Intake Total 420 Balance 420 Intake: Oral 420 Other: Voiding Method Toilet Toilet Toilet # Voids 2 2 07/21/18 11:34 07/21/18 11:34
[2018-07-22 11:32] VITALS: BP 107/70; PULSE 84; TEMP 97.5
--- NOTE | 2018-07-22 12:31 | ECHOF ---
Referral Reason:cp MEASUREMENTS -------- HEIGHT: 165.1 cm WEIGHT: 59.0 kg BP: 126/72 RVIDd: 2.7 cm (< 3.3) IVSd: 1.0 cm (0.6 - 1.1) LVIDd: 3.6 cm (3.9 - 5.3) LVPWd: 1.0 cm (0.6 - 1.1) IVSs: 1.3 cm LVIDs: 2.1 cm LVPWs: 1.2 cm LAESV Index (A-L): 14.64 ml/m Ao Diam: 3.0 cm (2.0 - 3.7) AV Cusp: 2.2 cm (1.5 - 2.6) MV EXCURSION: 18.894 mm (> 18.000) MV EF SLOPE: 104 mm/s (70 - 150) EPSS: 0.2 cm MV E Clay: 0.93 m/s MV DecT: 201 ms MV A Clay: 1.00 m/s MV E/A Ratio: 0.93 FINDINGS -------- Sinus rhythm. This was a technically good study. The left ventricular size is normal. Left ventricular wall thickness is normal. Overall left vent ricular systolic function is normal with, an EF between 60 - 65 %. The right ventricle is normal in size. Normal LA size by volume 22+/-6 ml/m2. The right atrium is normal in size. The aortic valve is trileaflet and appears structurally normal. The mitral valve is normal. The tricuspid valve appears structurally normal. Trace/mild (physiologic) pulmonic regurgitation. The aortic root size is normal. Normal inferior vena cava with normal inspiratory collapse consistent with estimated right atrial pre ssure of 5 mmHg. The inferior vena cava is mildly dilated. There is no pericardial effusion. CONCLUSIONS -------- 1. Sinus rhythm. 2. This was a technically good study. 3. The left ventricular size is normal. 4. Left ventricular wall thickness is normal. 5. Overall left ventricular systolic function is normal with, an EF between 60 - 65 %. 6. The right ventricle is normal in size. 7. Normal LA size by volume 22+/-6 ml/m2. 8. The right atrium is normal in size. 9. The aortic valve is trileaflet and appears structurally normal. 10. The mitral valve is normal. 11. The tricuspid valve appears structurally normal. 12. Trace/mild (physiologic) pulmonic regurgitation. 13. The aortic root size is normal. 14. Normal inferior vena cava with normal inspiratory collapse consistent with estimated right atrial pressure of 5 mmHg. 15. The inferior vena cava is mildly dilated. 16. There is no pericardial effusion. CHIEF LIBRARIAN BRANCH: Noemi Slade RDCS
--- NOTE | 2018-07-22 13:01 | ECHOS ---
STRESS ECHOCARDIOGRAM INDICATIONS: Chest pain. MEDICATIONS: Synthroid, Motrin. BASELINE HEART RATE: 68 BASELINE BLOOD PRESSURE: 117/78 MAXIMUM HEART RATE: 137 MAXIMUM BLOOD PRESSURE: 133/85 85% MPHR: 139 100% MPHR: 164 METS: 7.1 MAXIMUM STAGE REACHED: II TOTAL EXERCISE TIME: 6:00 CLINICAL INFORMATION: Patient was exercised for a total period of 6 minutes, a peak heart rate of 137 was achieved. Maximum blood pressure of 133/85 mmHg was noted. The resting EKG shows normal sinus rhythm with normal ND interval and QRS duration and normal ST-T waves. No ST-segment depression suggestive of ischemia is noted. The baseline echocardiographic images reveals normal left ventricular chamber size with normal left ventricular systolic function in the immediate postexercise period. Normal increase in the wall thickness and contractility is noted. FINAL IMPRESSION: 1. This stress echocardiographic study is negative for stress-induced ischemia. 2. EKG portion of the stress test is not suggestive of ischemia. 3. Patient did not complain of any chest pain during the test. MMODL / IJN: [id number] /
[2018-07-22] MEDS ORDERED: methylPREDNISolone SOD SUCCI 125 MG/2 ML VIAL IV STA (13:12)
--- NOTE | 2018-07-23 10:08 | DS ---
DISCHARGE SUMMARY DATE OF SERVICE: 07/22/2018 FINAL DIAGNOSES: 1. Chest pain, possibly pericarditis. 2. History of rheumatoid arthritis. 3. Negative stress test. 4. Hypothyroidism. 5. Hiatal hernia. 6. Episode of fluttering in the chest. 7. Acute viral syndrome. DISCHARGE DISPOSITION: The patient will be discharged in stable condition with guarded prognosis. HISTORY OF PRESENT ILLNESS: This is a 57-year-old woman with a past medical history of multiple medical problems being followed by Dr. Lino Wood in the outpatient setting admitted chest pain, which has been increasing on respiration. Myocardial infarction ruled out by Cardiology and TSH were found to be 5.680 and T4 is normal. Recommend outpatient followup. Stress echo showed no evidence of any reversible ischemia. The patient will be discharged in stable condition with guarded prognosis. I also recommend the patient to follow up with Dr. Pauly Lechuga, patient's operater for continued evaluation. On exam, vitals are stable. CARDIOVASCULAR: S1, S2 muffled. ABDOMEN: Soft. NERVOUS SYSTEM: No focal deficits. HANDS: Rheumatoid changes. The discharge medications are: 1. Levothyroxine 50 mcg p.o. daily. 2. Motrin 600 mg p.o. b.i.d. Once again, the patient will be discharged in a stable condition with guarded prognosis. MMODL / IJN: [id number] / MTDD
== END 2018-07-22 15:10 | disposition home or self-care (01) ==
LOC: EC 10:23 → 1SOBS 13:33
PROVIDERS: ADMIT Hospitalist; ATTEND Hospitalist
DX: R07.89 Other chest pain (principal); B34.9 Viral infection, unspecified; E03.9 Hypothyroidism, unspecified; R05 Cough; K44.9 Diaphragmatic hernia without obstruction or gangrene; M06.9 Rheumatoid arthritis, unspecified; Z86.19 Personal history of other infectious and parasitic diseases; Z87.891 Personal history of nicotine dependence; Z79.1 Long term (current) use of non-steroidal anti-inflammatories (NSAID); Z79.890 Hormone replacement therapy; Z88.6 Allergy status to analgesic agent; Z88.5 Allergy status to narcotic agent
CPT/HCPCS: 96374; 99285; 36415; 94760; 94762; 93005; 93306; 93351; 85379; 84439; 83880; 80061; 80053; 84443; 82550; 83735; 84484; 85025; 85610; 85730; 71046; 71275; G0378 ×2; J2930; Q9967

== ENCOUNTER → 2019-01-26 | Outpatient (CLI) | payer OTHER ==
--- NOTE | 2019-01-26 16:02 | CT ---
EXAMINATION TYPE: CT chest wo con DATE OF EXAM: 01/26/2019 COMPARISON: CTA chest July 21, 2018 HISTORY: Follow up for lung nodule. CT DLP: 349 mGycm. Automated Exposure Control for Dose Reduction was Utilized. TECHNIQUE: CT scan of the thorax is performed without IV contrast. FINDINGS: LUNGS: There is stable 5 x 3 mm right lower lobe subpleural nodule axial image 50. There is stable 5 x 4 mm medial left lower lobe nodule image 46 accounting for technical differences. Under 4 mm scarli ke opacity near left fissure medially axial image 17 is less prominent. No suspicious new nodules or masses. No pleural effusion or pneumothorax bilaterally. There is no pleural effusion or pneumothorax seen. The tracheobronchial tree is patent. MEDIASTINUM: Lack of IV contrast is noted to limit evaluation for mediastinal and especially hilar ad enopathy. There are no definitive greater than 1 cm hilar or mediastinal lymph nodes. No cardiomega ly or pericardial effusion is seen. OTHER: Small splenule inferior to the spleen. IMPRESSION: No new or enlarging nodules.
== END | disposition home or self-care (01) ==
LOC: RADCTMAIN 15:34
PROVIDERS: ATTEND Family Medicine
DX: R91.8 Other nonspecific abnormal finding of lung field (principal)
CPT/HCPCS: 71250

== ENCOUNTER → 2020-02-07 | Outpatient (CLI) | payer OTHER | END | disposition home or self-care (01) | LOC: LABWHC1 15:16 | PROVIDERS: ATTEND Family Medicine | DX: R05 Cough (principal); R06.02 Shortness of breath | CPT/HCPCS: U0003; C9803 ==

== ENCOUNTER → 2020-03-01 | Outpatient (CLI) | payer OTHER ==
--- NOTE | 2020-03-05 10:24 | MM ---
Reason for exam: screening (asymptomatic). Last mammogram was performed 3 years and 8 months ago. History: Patient is postmenopausal. Benign cyst aspiration of the left breast. Physical Findings: A clinical breast exam by your physician is recommended on an annual basis and results should be correlated with mammographic findings. MG 3D Screening Mammo W/Cad Bilateral CC and MLO view(s) were taken. Prior study comparison: June 26, 2016, bilateral MG 3d screening mammo w/cad. June 13, 2010, bilateral digital screening mammo w/CAD. The breast tissue is heterogeneously dense. This may lower the sensitivity of mammography. No significant changes when compared with prior studies. ASSESSMENT: Negative, BI-RAD 1 RECOMMENDATION: Routine screening mammogram of both breasts in 1 year.
== END | disposition home or self-care (01) ==
LOC: RADMAMWWP 15:48
PROVIDERS: ATTEND Family Medicine
DX: Z12.39 Encounter for other screening for malignant neoplasm of breast (principal)
CPT/HCPCS: 77063; 77067

== ENCOUNTER → 2020-03-08 | Outpatient (CLI) | payer OTHER ==
--- NOTE | 2020-03-09 09:12 | CT ---
EXAMINATION TYPE: CT chest wo con DATE OF EXAM: 03/08/2020 COMPARISON: Prior CT chest 01/26/2019 HISTORY: Follow up nodule. Family history of lung cancer CT DLP: 184.8 mGycm. Automated Exposure Control for Dose Reduction was Utilized. TECHNIQUE: CT scan of the thorax is performed without IV contrast. FINDINGS: LUNGS: The lungs are grossly clear, there is no concerning parenchymal mass or nodule identified, pre viously described nodule in the left lower lobe, subpleural nodule in the right lung on axial image 5 0 are stable. No new lung masses. There is no pleural effusion or pneumothorax seen. The tracheobro nchial tree is patent. MEDIASTINUM: Lack of IV contrast is noted to limit evaluation for mediastinal and especially hilar ad enopathy. There are no definitive greater than 1 cm hilar or mediastinal lymph nodes. No cardiomega ly or pericardial effusion is seen. OTHER: No additional significant abnormality is seen. IMPRESSION: Stable benign exam. No suspicious lung nodule.
== END | disposition home or self-care (01) ==
LOC: RADCTMAIN 16:57
PROVIDERS: ATTEND Family Medicine
DX: R91.8 Other nonspecific abnormal finding of lung field (principal)
CPT/HCPCS: 71250

== ENCOUNTER 2021-04-29 11:43 | Emergency (ER) | payer OTHER ==
[2021-04-29] MEDS ORDERED: DEXAMETHASONE SOD PHOSPHATE 10 MG/ML 1 ML VIAL IV STA (14:38)
[2021-04-29] MEDS ORDERED: IPRATROPIUM-ALBUTEROL 3 ML NEB INHALATION STA (14:39)
--- NOTE | 2021-04-29 15:03 | ED ---
General Adult HPI - General Chief complaint: Shortness of Breath Stated complaint: JASWANT Time Seen by Provider: 04/29/21 14:30 Source: patient Mode of arrival: ambulatory Limitations: no limitations - History of Present Illness Initial comments: Dictation was produced using [employer] dictation software. please excuse any grammatical, word or spelling errors. Chief Complaint: 60-year-old female presents to the emergency department for tana rtness of breath History of Present Illness: Is 60-year-old female she presents to the emergency department for shortness of breath. Patient states she's been feeling more winded than usual periods been ongoing for the last month but really progressively last 2 weeks. Patient states she has a cough nonproductive. She has history of COPD per she is a nonsmoker but is a former smoker. She has not smoked in approximately 30 years. She believes that her COPD is from exposure to hairstyling chemicals. 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 No fevers. She denies any history of blood clots. No calf or thigh pain or swelling. She is not vaccinated for COVID-19. No obvious exposures. The ROS documented in this emergency department record has been reviewed and confirmed by me. Those systems with pertinent positive or negative responses have been documented in the HPI. All other systems are other negative and/or noncontributory. PHYSICAL EXAM: General Impression: Alert and oriented x3, not in acute distress HEENT: Normocephalic atraumatic, extra-ocular movements intact, pupils equal and reactive to light bilaterally, mucous membranes moist. Cardiovascular: Heart regular rate and rhythm Chest: Able to complete full sentences, no retractions, no tachypnea, mild and inspiratory wheezing diffusely Abdomen: abdomen soft, non-tender, non-distended, no organomegaly Musculoskeletal: Pulses present and equal in all extremities, no peripheral edema Motor: no focal deficits noted Neurological: CN II-XII grossly intact, no focal motor or sensory deficits noted Skin: Intact with no visualized rashes Psych: Normal affect and mood ED course: 60-year-old feel presents to the emergency department for shortness of breath. Vital Signs upon arrival are within acceptable limits. Laboratory evaluation obtained. CBC unremarkable. Coag panel is negative. D- dimer 0.83. Metabolic panel is negative. Coag tests negative. Chest x-ray shows no acute processes. CT angios the chest shows no pulmonary embolism. Patient given breathing treatment and steroids reevaluated at the bedside found to be stable medical condition. Patient be discharged. Patient given pulmonology referral. EKG interpretation: Ventricular rate 70, normal sinus rhythm, NJ interval 24, QRS 82, QTC 419. No NJ prolongation, no QTC prolongation, no ST or T-wave changes noted. EKG compared to 07/21/2018 showing no changes. Overall, this EKG is unremarkable - Related Data Home Medications Medication Instructions Recorded Confirmed Levothyroxine Sodium [Synthroid] 75 mcg PO SUMOTUFRSA 04/29/21 04/29/21 Levothyroxine Sodium [Synthroid] 150 mcg PO WETH 04/29/21 04/29/21 Allergies Allergy/AdvReac Type Severity Reaction Status Date / Time hydrocodone [From [place]] AdvReac Nausea & Verified 04/29/21 16:07 Vomiting Review of Systems ROS Statement: Those systems with pertinent positive or pertinent negative responses have been documented in the HPI. ROS Other: All systems not noted in ROS Statement are negative. Past Medical History Past Medical History: COPD, Thyroid Disorder Additional Past Medical History / Comment(s): RA, hiatal hernia History of Any Multi-Drug Resistant Organisms: None Reported Date of last positivie culture/infection: 2017 MDRO Source:: bacertial infection right ear Past Surgical History: Ear Surgery Additional Past Surgical History / Comment(s): right ear 4 surgeries, bilat foot bunionectomy Past Anesthesia/Blood Transfusion Reactions: No Reported Reaction Additional Past Anesthesia/Blood Transfusion Reaction / Comment(s): pt statess she sometimes has difficulty waking up. Past Psychological History: No Psychological Hx Reported Smoking Status: Never smoker Past Alcohol Use History: Occasional Past Drug Use History: None Reported General Exam Limitations: no limitations Course Vital Signs 04/29/21 04/29/21 04/29/21 11:50 15:29 15:37 Temperature 97.7 F Pulse Rate 92 94 Respiratory 20 18 18 Rate Blood Pressure 142/76 149/83 O2 Sat by Pulse 99 96 Oximetry 04/29/21 04/29/21 15:58 16:08 Temperature Pulse Rate 86 84 Respiratory Rate Blood Pressure O2 Sat by Pulse Oximetry Medical Decision Making - Lab Data Result diagrams: 04/29/21 15:11 04/29/21 15:11 Lab Results 04/29/21 04/29/21 04/29/21 Range/Units 15:11 15:11 15:11 WBC 4.8 (3.8-10.6) k/uL RBC 4.50 (3.80-5.40) m/uL Hgb 14.2 (11.4-16.0) gm/dL Hct 43.2 (34.0-46.0) % MCV 96.0 (80.0-100.0) fL MCH 31.5 (25.0-35.0) pg MCHC 32.8 (31.0-37.0) g/dL RDW 12.7 (11.5-15.5) % Plt Count 282 (150-450) k/uL MPV 7.5 Neutrophils % 42 % Lymphocytes % 24 % Monocytes % 8 % Eosinophils % 20 % Basophils % 2 % Neutrophils # 2.0 (1.3-7.7) k/uL Lymphocytes # 1.1 (1.0-4.8) k/uL Monocytes # 0.4 (0-1.0) k/uL Eosinophils # 1.0 H (0-0.7) k/uL Basophils # 0.1 (0-0.2) k/uL PT 9.9 (9.0-12.0) sec INR 0.9 (<1.2) APTT 92.6 H (22.0-30.0) sec D-Dimer 0.83 H (<0.60) mg/L FEU Sodium (137-145) mmol/L Potassium (3.5-5.1) mmol/L Chloride (98-107) mmol/L Carbon Dioxide (22-30) mmol/L Anion Gap mmol/L BUN (7-17) mg/dL Creatinine (0.52-1.04) mg/dL Est GFR (CKD-EPI)AfAm (>60 ml/min/1.73 sqM) Est GFR (CKD-EPI)NonAf (>60 ml/min/1.73 sqM) Glucose (74-99) mg/dL Calcium (8.4-10.2) mg/dL Troponin I (0.000-0.034) ng/mL NT-Pro-B Natriuret Pep pg/mL Coronavirus (PCR) Not Detected (Not Detectd) 04/29/21 04/29/21 04/29/21 Range/Units 15:11 15:11 15:11 WBC (3.8-10.6) k/uL RBC (3.80-5.40) m/uL Hgb (11.4-16.0) gm/dL Hct (34.0-46.0) % MCV (80.0-100.0) fL MCH (25.0-35.0) pg MCHC (31.0-37.0) g/dL RDW (11.5-15.5) % Plt Count (150-450) k/uL MPV Neutrophils % % Lymphocytes % % Monocytes % % Eosinophils % % Basophils % % Neutrophils # (1.3-7.7) k/uL Lymphocytes # (1.0-4.8) k/uL Monocytes # (0-1.0) k/uL Eosinophils # (0-0.7) k/uL Basophils # (0-0.2) k/uL PT (9.0-12.0) sec INR (<1.2) APTT (22.0-30.0) sec D-Dimer (<0.60) mg/L FEU Sodium 139 (137-145) mmol/L Potassium 4.0 (3.5-5.1) mmol/L Chloride 103 (98-107) mmol/L Carbon Dioxide 25 (22-30) mmol/L Anion Gap 11 mmol/L BUN 8 (7-17) mg/dL Creatinine 0.65 (0.52-1.04) mg/dL Est GFR (CKD-EPI)AfAm >90 (>60 ml/min/1.73 sqM) Est GFR (CKD-EPI)NonAf >90 (>60 ml/min/1.73 sqM) Glucose 91 (74-99) mg/dL Calcium 9.8 (8.4-10.2) mg/dL Troponin I <0.012 (0.000-0.034) ng/mL NT-Pro-B Natriuret Pep 100 pg/mL Coronavirus (PCR) (Not Detectd) Disposition Clinical Impression: Dyspnea Disposition: HOME SELF-CARE Condition: Fair Instructions (If sedation given, give patient instructions): COPD (Chronic Obstructive Pulmonary Disease) (ED) Is patient prescribed a controlled substance at d/c from ED?: No Referrals: Lino Wood DO [Primary Care Provider] - 1-2 days Grayson Jones DO [Doctor of Osteopathic Medicine] - 1-2 days
--- NOTE | 2021-04-29 15:12 | XR ---
EXAMINATION TYPE: XR chest 1V portable DATE OF EXAM: 04/29/2021 COMPARISON: Chest x-ray 07/21/2018, CT chest 03/08/2020 HISTORY: Dyspnea TECHNIQUE: Single frontal view of the chest is obtained. FINDINGS: There is no focal air space opacity, pleural effusion, or pneumothorax seen. The cardiac silhouette size is within normal limits. The osseous structures are intact. There are overlying art ifacts. The aorta is dense. IMPRESSION: No acute process.
[2021-04-29 15:25] LABS: Basophils # (A) 0.1 k/uL (0-0.2); Basophils % (A) 2 %; Eosinophils % (A) 20 %; HCT 43.2 % (34.0-46.0); HGB 14.2 gm/dL (11.4-16.0); Lymphocytes # (A) 1.1 k/uL (1.0-4.8); Lymphocytes % (A) 24 %; MCH 31.5 pg (25.0-35.0); MCHC 32.8 g/dL (31.0-37.0); Mean Platelet Volume 7.5; Monocytes # (A) 0.4 k/uL (0-1.0); Monocytes % (A) 8 %; Neutrophils % (A) 42 %; Platelet Count 282 k/uL (150-450); RDW 12.7 % (11.5-15.5); WBC 4.8 k/uL (3.8-10.6)
[2021-04-29 15:34] VITALS: RESP 18
[2021-04-29 15:40] LABS: African American GFR (CKD) >90 (>60 ml/min/1.73 sqM); Anion Gap 11 mmol/L; Blood Urea Nitrogen 8 mg/dL (7-17); Calcium 9.8 mg/dL (8.4-10.2); Carbon Dioxide 25 mmol/L (22-30); Chloride 103 mmol/L (98-107); Glucose 91 mg/dL (74-99); INR 0.9 (<1.2); Non-African American GFR(CKD) >90 (>60 ml/min/1.73 sqM); Prothrombin Time 9.9 sec (9.0-12.0); Sodium 139 mmol/L (137-145)
[2021-04-29 15:49] LABS: Partial Thromboplastin Time 92.6 sec (22.0-30.0)
--- NOTE | 2021-04-29 16:58 | CT ---
EXAMINATION TYPE: CT angio chest DATE OF EXAM: 04/29/2021 COMPARISON: 07/21/2018 HISTORY: +covid, elevated d-dimer CT DLP: 196 mGycm Automated exposure control for dose reduction was used. CONTRAST: Performed with IV Contrast, patient injected with 80cc mL of Isovue 370. There are Three-D postprocessed images. The lungs are clear of consolidation. There is no evidence of a pulmonary mass. There is no pleural e ffusion. There is no pericardial effusion. Heart size is fairly normal. Upper abdominal soft tissues are intact. There are no hilar masses. There is no mediastinal adenopathy. Ascending aorta measures 3.5 cm. There is no dissection. There is normal contrast opacification of the pulmonary arteries. There are no filling defects. Thora cic vertebrae are normal alignment. Posterior elements are intact. There is no compression fracture. Sternum is intact. IMPRESSION: Negative exam. No evidence of pulmonary embolism. No adverse change compared to old exam.
[2021-04-29 17:38] VITALS: BP 131/72; PULSE 93; TEMP 99
== END 2021-04-29 17:38 | disposition home or self-care (01) ==
LOC: EC 11:43
DX: R06.02 Shortness of breath (principal); J44.9 Chronic obstructive pulmonary disease, unspecified; E07.9 Disorder of thyroid, unspecified; Z88.5 Allergy status to narcotic agent; Z20.822 Contact with and (suspected) exposure to COVID-19; Z79.890 Hormone replacement therapy; Z87.891 Personal history of nicotine dependence
CPT/HCPCS: 36415; 94640; 85379; 83880; 80048; 84484; 85025; 85610; 85730; 87635; 71045; 71275; 99285; 96374; J1100; Q9967

== ENCOUNTER → 2021-08-26 | Outpatient (CLI) | payer OTHER ==
[2021-08-26 23:25] LABS: ALT 19 U/L (8-44); AST 26 U/L (13-35); African American GFR (CKD) 108.6 (60.0-200.0); Albumin 4.4 g/dL (3.8-4.9); Albumin/Globulin Ratio 1.55 (1.60-3.17); Alkaline Phosphatase 54 U/L (41-126); BUN/Creat Ratio 13.07 Ratio (12.00-20.00); Blood Urea Nitrogen 9.2 mg/dL (9.0-27.0); Calcium 9.9 mg/dL (8.7-10.3); Carbon Dioxide 25.4 mmol/L (20.0-27.5); Chloride 104 mmol/L (96-109); Globulin 2.8 g/dL (1.6-3.3); Glucose 94 mg/dL (70-110); Non-African American GFR(CKD) 93.7 (60.0-200.0); Potassium 4.1 mmol/L (3.5-5.5); Sodium 138 mmol/L (135-145); Total Bilirubin <0.15 mg/dL (0.30-1.20); Total Protein 7.2 g/dL (6.2-8.2)
== END | disposition home or self-care (01) ==
LOC: LABWHC1 16:12
PROVIDERS: ATTEND Internal Medicine Rheumatology
DX: M06.9 Rheumatoid arthritis, unspecified (principal)
CPT/HCPCS: 36415; 80053

== ENCOUNTER 2021-09-26 16:47 | Emergency (ER) | payer OTHER ==
[2021-09-26 17:18] VITALS: RESP 18
--- NOTE | 2021-09-26 18:57 | XR ---
EXAMINATION TYPE: XR chest 2V DATE OF EXAM: 09/26/2021 6:04 PM COMPARISON: Chest radiographs from 04/29/2021 TECHNIQUE: XR chest 2V Frontal and lateral views of the chest. CLINICAL INDICATION:Female, 60 years old with history of cough; FINDINGS: Lungs/Pleura: There is flattening of the diaphragm with increased lucency of the lungs. No evidence o f pneumothorax, pleural effusion or focal consolidation. Pulmonary vascularity: Unremarkable. Heart/mediastinum: Cardiomediastinal silhouette is unremarkable. Musculoskeletal: No acute osseous pathology. IMPRESSION: 1. No acute cardiopulmonary disease process. 2. COPD changes.
[2021-09-26] MEDS ORDERED: cefTRIAXone 1,000 MG VIAL (IM USE) IM STA (19:09)
--- NOTE | 2021-09-26 19:09 | ED ---
General Adult HPI - General Chief complaint: Upper Respiratory Infection Stated complaint: JASWANT,cough Time Seen by Provider: 09/26/21 18:50 Source: patient, RN notes reviewed, old records reviewed Mode of arrival: ambulatory Limitations: no limitations - History of Present Illness Initial comments: This is a 60-year-old female presents emergency Department complaining that she has congestion and a fever for the last 4 days that is the first day she has not had a fever. Patient states she was exposed to influenza from her grandson. Patient states she's also had a cough with some production. Patient states today the sputum production seems less. Patient denies any chest pain or palpitations. Patient denies any headache or numbness weakness. Patient denies any abdominal pain patient denies nausea vomiting diarrhea. Patient states she does have a little shortness of breath on occasion. - Related Data Home Medications Medication Instructions Recorded Confirmed Levothyroxine Sodium [Synthroid] 75 mcg PO SUMOTUFRSA 04/29/21 04/29/21 Levothyroxine Sodium [Synthroid] 150 mcg PO WETH 04/29/21 04/29/21 Previous Rx's Medication Instructions Recorded Albuterol Inhaler [Ventolin Hfa 2 puff INHALATION RT-QID #18 gm 09/26/21 Inhaler] Azithromycin [Zithromax Tri-Hari] 500 mg PO DAILY #3 tab 09/26/21 Allergies Allergy/AdvReac Type Severity Reaction Status Date / Time hydrocodone [From [place]] AdvReac Nausea & Verified 04/29/21 16:07 Vomiting Review of Systems ROS Statement: Those systems with pertinent positive or pertinent negative responses have been documented in the HPI. ROS Other: All systems not noted in ROS Statement are negative. Past Medical History Past Medical History: COPD, Thyroid Disorder Additional Past Medical History / Comment(s): RA, hiatal hernia History of Any Multi-Drug Resistant Organisms: None Reported Date of last positivie culture/infection: 2018 MDRO Source:: bacertial infection right ear Past Surgical History: Ear Surgery Additional Past Surgical History / Comment(s): right ear 4 surgeries, bilat foot bunionectomy Past Anesthesia/Blood Transfusion Reactions: No Reported Reaction Additional Past Anesthesia/Blood Transfusion Reaction / Comment(s): pt statess she sometimes has difficulty waking up. Past Psychological History: No Psychological Hx Reported Smoking Status: Never smoker Past Alcohol Use History: Occasional Past Drug Use History: None Reported General Exam - General Exam Comments Initial Comments: GENERAL: Patient is well-developed and well-nourished. Patient is nontoxic and well- hydrated and is in mild distress. ENT: Neck is soft and supple. No significant lymphadenopathy is noted. Oropharynx is clear. Moist mucous membranes. Neck has full range of motion without eliciting any pain. EYES: The sclera were anicteric and conjunctiva were pink and moist. Extraocular movements were intact and pupils were equal round and reactive to light. Eyelids were unremarkable. PULMONARY: Unlabored respirations. Good breath sounds bilaterally. Patient has crackles on the right base and some expiratory wheezing.. CARDIOVASCULAR: There is a regular rate and rhythm without any murmurs gallops or rubs. ABDOMEN: Soft and nontender with normal bowel sounds. SKIN: Skin is clear with no lesions or rashes and otherwise unremarkable. NEUROLOGIC: Patient is alert and oriented x3. Cranial nerves II through XII are grossly intact. Motor and sensory are also intact. Normal speech, volume and content. Symmetrical smile. MUSCULOSKELETAL: Normal extremities with adequate strength and full range of motion. No lower extremity swelling or edema. No calf tenderness. LYMPHATICS: No significant lymphadenopathy is noted PSYCHIATRIC: Normal psychiatric evaluation. Limitations: no limitations Course Vital Signs 09/26/21 17:16 Temperature 98.2 F Pulse Rate 76 Respiratory 18 Rate Blood Pressure 100/62 O2 Sat by Pulse 97 Oximetry Medical Decision Making - Lab Data Lab Results 09/26/21 09/26/21 Range/Units 17:20 17:20 Coronavirus (PCR) Not Detected (Not Detectd) Influenza Type A RNA Not Detected (Not Detectd) Influenza Type B (PCR) Not Detected (Not Detectd) Disposition Clinical Impression: Acute bronchitis, Bronchospasm Disposition: HOME SELF-CARE Condition: Good Instructions (If sedation given, give patient instructions): Acute Bronchitis (ED), Bronchospasm (ED) Prescriptions: Albuterol Inhaler [Ventolin Hfa Inhaler] 2 puff INHALATION RT-QID #18 gm Azithromycin [Zithromax Tri-Hari] 500 mg PO DAILY #3 tab Is patient prescribed a controlled substance at d/c from ED?: No Referrals: Lino Wood DO [Primary Care Provider] - 1-2 days Time of Disposition: 19:07
[2021-09-26 19:37] VITALS: BP 129/77; PULSE 70; TEMP 98.3
== END 2021-09-26 19:38 | disposition home or self-care (01) ==
LOC: EC 16:47
DX: J44.0 Chronic obstructive pulmonary disease with (acute) lower respiratory infection (principal); J20.9 Acute bronchitis, unspecified; E07.9 Disorder of thyroid, unspecified; Z20.822 Contact with and (suspected) exposure to COVID-19; Z88.5 Allergy status to narcotic agent; Z79.890 Hormone replacement therapy
CPT/HCPCS: 87502; 87635; 71046; 99285; 96372; J0696

== ENCOUNTER → 2023-04-13 | Outpatient (CLI) | payer OTHER ==
--- NOTE | 2023-04-14 21:26 | MM ---
Reason for Exam: Screening (asymptomatic). Last mammogram was performed 3 year(s) and 1 month(s) ago. Patient History: Menarche at age 17. First Full-Term at age 25. Postmenopausal. Benign Cyst Aspiration on the left side. Risk Values: Yvonne 5 year model risk: 1.2%. NCI Lifetime model risk: 5.8%. Prior Study Comparison: 06/13/2010 Bilateral Screening Mammogram, [facility]. 06/26/2016 Bilateral Screening Mammogram, [facility]. 03/01/2020 Bilateral Screening Mammogram, [facility]. Tissue Density: The breast tissue is heterogeneously dense. This may lower the sensitivity of mammography. Findings: Analyzed By CAD. There is no suspicious group of microcalcifications or new suspicious mass in either breast. Overall Assessment: Negative, BI-RAD 1 Management: Screening Mammogram of both breasts in 1 year. . Patient should continue monthly self-breast exams. A clinical breast exam by your physician is recommended on an annual basis. This exam should not preclude additional follow-up of suspicious palpable abnormalities. Note on Yvonne scores and lifetime risk: 1. A Yvonne score greater than 3% is considered moderate risk. If this is the case, consider specialist referral to assess eligibility for a risk reducing agent. 2. If overall lifetime risk for the development of breast cancer is 20% or higher, the patient may qualify for future screening with alternating mammogram and breast MRI. Electronically signed and approved by: Azeb Bernard M.D. Radiologist
== END | disposition home or self-care (01) ==
LOC: RADMAMWWP 08:11
PROVIDERS: ATTEND Family Medicine
DX: Z12.31 Encounter for screening mammogram for malignant neoplasm of breast (principal); Z78.0 Asymptomatic menopausal state
CPT/HCPCS: 77067